=== PATIENT | female | born 1975 | race Caucasian/White ===

== ENCOUNTER → 2020-12-09 08:35 | Outpatient (POV) | payer SELFPAY | PROVIDERS: Visit Provider Dermatology | DX: Z00.00 Encounter for general adult medical examination without abnormal findings (principal) ==

== ENCOUNTER 2025-04-15 13:15 | Outpatient (CLI) | payer OTHER, SELFPAY ==
--- NOTE | 2025-04-15 13:18 | MM_ITS ---
PROCEDURE INFORMATION: Exam: Bilateral Diagnostic Breast Tomosynthesis Exam date and time: 04/15/2025 1:28 PM Age: 49 years old Clinical indication: Right breast palpable lump. TECHNIQUE: Imaging protocol: Bilateral Diagnostic tomosynthesis and 2D mammography including computer-aided detection (CAD) when performed. Unilateral or bilateral exam. Triangular marker placed on palpable concern with spot-compression added. COMPARISON: No relevant prior studies available. If prior mammograms are provided, I am happy to add an addendum. FINDINGS: MAMMOGRAPHY: Breast mammogram findings: Breast composition: There are scattered areas of fibroglandular density. 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 Architectural distortion: None. Calcifications: No suspicious calcifications. Asymmetric density: None. Skin thickening: None. Axillary adenopathy: None. 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 No mammographic evidence of malignancy on the left. ASSESSMENT: BI-RADS Category 0: Incomplete: Need Additional Imaging Evaluation.
--- OUTSIDE RECORDS SUMMARY | 2025-04-15 13:19 | XMS_ITS | Clinical Summary ---
Author Organization [place] [facility] [place] [place] [address] Care Team Providers Care Manager Programs Name Role Phone Octavia Degroot APRN Primary Care Provider +1- [phone] Allergies Active Allergy Reactions Criticality Noted Date Comments Sulfa Drugs Rash Low 02/10/2021 Medications No known medications Active Problems No known active problems Social History Tobacco Use Types Packs/Day Years Used Date Smoking Tobacco: Former Smokeless Tobacco: Never Alcohol Use Standard Drinks/Week Comments Not Currently 0 (1 standard drink = 0.6 oz pur e alcohol) Comments Unknown Sex and Gender Information Value Date Recorded Sex Assigned at Not on file Legal Sex Female 8:00 PM EDT Gender Identity Not on file Sexual Orientation Not on file Last Filed Vital Signs Vital Sign Reading Time Taken Comments Blood Pressure 126/74 02/10/2021 1:45 PM EDT Pulse 81 02/10/2021 1:45 PM EDT Temperature 37.1 C (98.7 F) 02/10/2021 1:45 PM EDT Respiratory Rate - - Oxygen Saturation - - Inhaled Oxygen Concentration - - Weight 72.1 kg (159 lb) 02/10/2021 1:45 PM EDT Height 175.3 cm (5' 9 ) 02/10/2021 1:45 PM EDT Body Mass Index 23.48 02/10/2021 1:45 PM EDT Plan of Treatment Health Maintenance Due Date Last Done Comments [facility]-Depression Screening 1975 [facility]-Infant/Child/Adol SDOH Screenings 1975 [facility]- SDOH Screenings 1993 [facility]-Adult SDOH Screenings 1993 [facility]-DTaP,Tdap,and Td Vaccine s (1 - Tdap) 1994 [facility]-Hepatitis B Vaccines (1 of 3 - 19+ 3-dose series) 1994 [facility]-Pap Smear 1996 [facility]-Cervical Cancer Screening 2005 [facility]-HPV/Cotest 2005 CT Colonography 2020 Colonoscopy 2020 FIT-DNA 2020 FIT 2020 FOBT 2020 Sigmoidoscopy 2020 [facility]-Colorectal Cancer Screening 2020 [id number] Vaccine (1 - 20 24-25 season) 2024 [facility]-Influenza Vaccine (#1) 2025 [facility]-Zoster Vaccines (1 of 2) 2025 HPV Vaccines Aged Out No longer eligi ble based on patient's age to complete this topic [facility]-HIB Vaccines Aged Out No longer e ligible based on patient's age to complete this topic [facility]-Hepatitis A Vaccines Aged Out No longer eligible based on patient's age to complete this topic [facility]-IPV Vaccines Aged Out No longer e ligible based on patient's age to complete this topic [facility]-Pneumococcal Vaccine: Pediatrics (0 to 5 Years) and At-Risk Patients (6 to 49 Years) Aged Out No long er eligible based on patient's age to complete this topic [facility]-Rotavirus Vaccines Aged Out No lo nger eligible based on patient's age to complete this topic Insurance [employer] Care Teams Manager Programs Relationship Specialty Start Date End Date Octavia Degroot, QUALITY ASSURANCE PRACTICE MANAGER [address] [address] PCP - General 02/10/21
--- OUTSIDE RECORDS SUMMARY | 2025-04-15 13:19 | XMS_ITS | Clinical Summary ---
Author Organization [facility] Address [address] [place] [address] Care Team Providers Care Auto Electrical Technician Name Role Phone Provider, No Known Primary Care Provider Unavail able Medications sodium-potassiu m-magnesium sulfates (Suprep Bowel Prep Kit) 17.5-3.13-1.6 GM/177ML solution oral solution Use as directed by provider for colonoscopy prep 354 mL 2 Active Social History Tobacco Use Types Packs/Day Years Used Date Smoking Tobacco: Never Assessed Abuse Screen Answer Date Recorded Unsafe at Home or Work/School Not on file Feels Threatened by Someone? Not on file Does Anyone Keep You from Co ntacting Others or Doint Things Outside the Home? Not on file 05/20/2023 Physical Sign of Abuse Present Not on file 1 Housing Stability Answer Date Recorded Current Living Arrangements Not on file 05/08 Potentially Unsafe Housing Conditions Not on jami e 05/20/2023 Family and Community Support Answer Navneet e Recorded Help with Day-to-Day Activities Not on file 05/20/2023 Lonely or Isolated Not on file 05/20/2023 Employment Answer Date Recorded Do you want help finding or keeping work or a sidney b? Not on file 05/20/2023 Disabilities Answer Date Recorded Concentrating, Remembering, or Making Decisions Difficulty Not on file 05/20/2023 Doing Errands Independently Difficulty Not on fi le 05/20/2023 Education Answer Date Recorded Help with school or training? Not on file Preferred Language Not on file 05/20/2023 Comments Unknown Sex and Gender Information Value Date Recorded Sex Assigned at Not on file Legal Sex Female 3:12 PM EST Gender Identity Not on file Sexual Orientation Not on file Plan of Treatment Health Maintenance Due Date Last Done Comments Annual Gynecologic Pelvic an d Breast Exam 1975 TDAP/TD VACCINES (1 - Tdap) 1994 MAMMOGRAM 2015 COLOGUARD 2020 COLON CANCER SCREENING 5 YEA R SIGMOID[address]COPY [address] COLONOGRAPHY 2020 FECAL OCCULT BLOOD TEST 2020 FIT Testing (1 year) 2020 ANNUAL PHYSICAL 10/19/2021 HEPATITIS C SCREENING 10/19/2021 COVID-19 Vaccine ( - 2023-2 5 season) 2025 INFLUENZA VACCINE 05/08/2025 COLONOSCOPY 11/02/2026 11/02/2021 COLORECTAL CANCER SCREENING 11/02/2026 Pneumococcal Vaccine 0-49 Aged Out No longer eligible based on patient's age to complete this topic Procedures Procedure Name Priority Date/Time Associated Diagnosis Comments SCANNED - COLONOSCOPY 11/02/2021 from Last 3 Months or Most Recently Relevant to Health Maintenance Results * SCANNED - COLONOSCOPY (11/02/2021) Eduardo Croft MD CHART REVIEW TABS Odalis l Result from Last 3 Months or Most Recently Relevant to Health Maintenance Insurance PPO Care Teams Auto Electrical Technician Relationship Specialty Start Date End Date Provider, [place] [address] PCP - General 11/01/21
== END 2025-04-15 23:59 | disposition home or self-care (01) ==
LOC: RAD 13:16
DX: N63.41 Unspecified lump in right breast, subareolar (principal); R92.323 Mammographic fibroglandular density, bilateral breasts
CPT/HCPCS: 77062; 77066; G0279

== ENCOUNTER 2025-04-29 12:49 | Outpatient (CLI) | payer OTHER, SELFPAY ==
--- OUTSIDE RECORDS SUMMARY | 2025-04-29 12:52 | XMS_ITS | Clinical Summary ---
Author Organization [facility] Address [address] [place] [address] Care Team Providers Care Steam Pipe Fitter Name Role Phone Provider, No Known Primary [...] ANNUAL PHYSICAL 10/19/2021 HEPATITIS C SCREENING 10/19/2021 INFLUENZA VACCINE 03/08/2025 COLONOSCOPY 11/02/2026 11/02/2021 COLORECTAL CANCER SCREENING 11/02/2026 [...] to Health Maintenance Insurance PPO Care Teams Steam Pipe Fitter Relationship Specialty Start Date End Date Provider, [place] [address] PCP - General 11/01/21
--- OUTSIDE RECORDS SUMMARY | 2025-04-29 12:52 | XMS_ITS | Clinical Summary ---
Author Organization [facility] Address [facility] [place] [address] Care Team Providers Care Aircraft Instrument Tester Name Role Phone Octavia Degroot APRN Primary Care Provider +1- [phone] Allergies Active Allergy Reactions Criticality Noted Date [...] 2020 Sigmoidoscopy 2020 [facility]-Colorectal Cancer Screening 2020 [id number] Vaccine (1 - 20 24-25 season) 2025 [facility]-Influenza Vaccine (#1) 2025 [facility]-Zoster Vaccines (1 [...] complete this topic Insurance [employer] Care Teams Aircraft Instrument Tester Relationship Specialty Start Date End Date Octavia Degroot, ORTHOPEDIC TECHNICIAN [address] [address] PCP - General 02/10/21
--- NOTE | 2025-04-29 12:53 | US_ITS ---
PROCEDURE INFORMATION: Exam: US Right Breast, Complete Exam date and time: 04/29/2025 12:45 PM Age: 49 years old Clinical indication: Palpable abnormality in the right breast TECHNIQUE: Imaging protocol: Complete ultrasound of all four quadrants of the right breast and the retroareolar regions, including ultrasound of the axilla when performed. COMPARISON: MG MM DIG MAMM BI DX W/CAD 04/15/2025 1:28 PM FINDINGS: ULTRASOUND: Breast ultrasound findings: Sonographic images of the right breast including the retroareolar region, all 4 quadrants and the axilla demonstrates a cluster of cysts in the 1 o'clock axis 1 cm from the nipple. 0.5 cm cyst in the 1 o'clock axis 2 cm from the nipple. 0.4 cm cyst in the right 6 o'clock axis 3 cm from the nipple. Palpable area in the right retroareolar region corresponds sonographically to what appears to be normal fibroglandular structures. Cursors were placed over the area of interest. There is no definite mammographic correlate. No architectural distortion or acoustical shadowing. No skin thickening or axillary adenopathy. IMPRESSION: Palpable abnormality in the anterior right breast does not definitely have a mammographic or sonographic correlate. Further evaluation of a palpable abnormality should be based on clinical grounds. Consultation for potential biopsy by palpation is recommended ASSESSMENT: BI-RADS Category 0: Incomplete- Need Additional Imaging Evaluation. Surgical consultation recommended
== END 2025-04-29 23:59 | disposition home or self-care (01) ==
LOC: RAD 12:50
DX: N60.11 Diffuse cystic mastopathy of right breast
CPT/HCPCS: 76641